=== PATIENT | female | born 1975 | race Caucasian/White ===

== ENCOUNTER 2016-03-22 19:13 | Emergency (ER) | payer OTHER ==
[~2016-03-22] VITALS: Ht 172.7 cm; Wt 100.0 kg
[~2016-03-22 19:13] MED LIST: ADVIL200 M1 OR; ADVIL200 MG OR; CELEXA10 MG PO; CIPRO500 MG OR; CIPROFLOXACN500 MG PO; KLONOPIN0.5 MG OR; LOPRESSOR; LORTAB 5 OR; PAXIL CR12.5 MG OR; PENICILLN VK500 M1 OR; TIMOLOL MAL PO
[2016-03-22 19:20] VITALS: BP 134/85
== END 2016-03-23 00:25 | disposition home or self-care (01) | DRG 563 ==
LOC: ED 19:13
DX: S93.401A Sprain of unspecified ligament of right ankle, initial encounter (principal); X50.1XXA Overexertion from prolonged static or awkward postures, initial encounter; Y92.009 Unspecified place in unspecified non-institutional (private) residence as the place of occurrence of the external cause

== ENCOUNTER 2017-11-17 05:19 | Emergency (ER) | payer OTHER ==
[~2017-11-17] VITALS: Ht 172.7 cm; Wt 102.6 kg
[2017-11-17] MEDS ORDERED: CLONAZEPAM1 MG PO (05:29)
[2017-11-17] MEDS ORDERED: TIMOLOL MAL PO ×2 (05:31→05:32)
[2017-11-17 06:16] LABS: ANION GAP 15 (6-22 (CALC)); BUN 6 mg/dL (7-17); BUN/CREATININE RATIO 9 (12-20 (CALC)); CARBON DIOXIDE 24 mmol/l (22-30); CHLORIDE 108 mmol/l (95-108); CPK 52 u/l (30-165); CREATININE 0.6 mg/dL (0.5-1.0); GFR > 60 ML/MIN (>=60 (CALC)); GFR FOR AFR.AMER. > 60 ML/MIN (>=60 (CALC)); SODIUM 143 mmol/l (137-146)
[2017-11-17 06:24] LABS: MYOGLOBIN 31 ng/mL (0 - 62)
[2017-11-17] MEDS ORDERED: VOLTAREN - GENE75 MG PO (06:45)
[2017-11-17 07:03] VITALS: BP 141/92
== END 2017-11-17 07:09 | disposition home or self-care (01) ==
LOC: ED 05:19
PROVIDERS: Family Medicine
DX: M54.16 Radiculopathy, lumbar region (principal); I34.1 Nonrheumatic mitral (valve) prolapse; F41.9 Anxiety disorder, unspecified; F17.200 Nicotine dependence, unspecified, uncomplicated; M79.651 Pain in right thigh

== ENCOUNTER 2018-06-16 17:06 | Emergency (ER) | payer BC ==
[~2018-06-16] VITALS: Ht 172.7 cm; Wt 100.0 kg
[~2018-06-16 17:06] MED LIST changes: +CLONAZEPAM1 MG PO; +VOLTAREN - GENE75 MG PO
[2018-06-16 17:45] LABS: HEMATOCRIT 47.4 % (37.0-47.0); HEMOGLOBIN 15.8 g/dl (12.0-16.0); IMMATURE GRANULOCYTES 0.4 % (0.0-5.0); MEAN CELL VOLUME 88.4 fL CALC (80.0-100.0); MEAN CORPUSCULAR HGB 29.5 pG CALC (26.0-32.0); MEAN CORPUSCULAR HGB CONC 33.3 g/L CALC (32.0-36.0); NEUT# 6.84 thou/uL (2.00-7.15); RED BLOOD COUNT 5.36 mill/uL (4.20-5.60); RED CELL DISTRI WIDTH 12.8 % (11.5-15.5)
[2018-06-16 18:18] LABS: ALBUMIN 4.9 g/dL (3.2-5.0); ALKALINE PHOSPHATASE 120 u/l (38-126); ANION GAP 15 (6-22 (CALC)); BILIRUBIN, TOTAL 0.5 mg/dL (0.0-1.4); BUN 10 mg/dL (7-17); BUN/CREATININE RATIO 12 (12-20 (CALC)); CARBON DIOXIDE 22 mmol/l (22-30); CHLORIDE 106 mmol/l (95-108); CREATININE 0.9 mg/dL (0.5-1.0); GFR > 60 ML/MIN (>=60 (CALC)); GFR FOR AFR.AMER. > 60 ML/MIN (>=60 (CALC)); POTASSIUM 3.9 mmol/l (3.5-5.1); SGOT/AST 18 u/l (14-36); SODIUM 139 mmol/l (137-146); TOTAL PROTEIN 7.7 g/dL (6.3-8.2)
[2018-06-16 20:53] LABS: URINE BILIRUBIN - DIPSTICK NEGATIVE (NEGATIVE); URINE BLOOD DIPSTICK SMALL (NEGATIVE); URINE COLOR YELLOW; URINE GLUCOSE - DIPSTICK NEGATIVE (NEGATIVE); URINE KETONE NEGATIVE (NEGATIVE); URINE NITRITE - DIPSTICK NEGATIVE (Negative); URINE PH 5.5 (4.5-8.0); URINE PROTEIN - DIPSTICK NEGATIVE (NEG-TRACE); URINE SPECIFIC GRAVITY <=1.005; URINE UROBILINOGEN - DIPSTICK 0.2 E.U./dL (0.2)
[2018-06-16 20:54] LABS: URINE LEUK ESTERASE MODERATE (NEGATIVE)
[2018-06-16 21:00] VITALS: BP 124/80
[2018-06-16 21:01] LABS: BARBITURATES NEGATIVE (NEGATIVE); COCAINE NEGATIVE (NEGATIVE); METHADONE NEGATIVE (NEGATIVE); OXCYCODONE NEGATIVE (NEGATIVE); TETRAHYDROCANNABIONOL NEGATIVE (NEGATIVE); TRICYLIC ANTIDEPRESSANTS NEGATIVE (NEGATIVE)
[2018-06-16 21:05] LABS: URINE BACTERIA FEW hpf; URINE SQUAMOUS EPITHELIAL CELL FEW EPI/hpf (0-FEW); URINE WBC 20-50 WBC/hpf (0-5)
[2018-06-16] MEDS ORDERED: KEFLEX500 MG PO (21:12)
== END 2018-06-16 21:20 | disposition home or self-care (01) | DRG 880 ==
LOC: ED 17:06
DX: F41.9 Anxiety disorder, unspecified (principal); R00.2 Palpitations; F17.200 Nicotine dependence, unspecified, uncomplicated
CPT/HCPCS: J2060

== ENCOUNTER 2018-07-30 17:03 | Emergency (ER) | payer BC ==
[~2018-07-30] VITALS: Ht 172.7 cm; Wt 100.0 kg
[~2018-07-30 17:03] MED LIST changes: +KEFLEX500 MG PO
[2018-07-30] MEDS ORDERED: METOPROL TAR25 MG PO (17:14)
[2018-07-30] MEDS ORDERED: PAROXETIN ER12.5 MG PO (17:15)
[2018-07-30] MEDS ORDERED: ALPRAZOLAM1 MG PO (17:15)
[2018-07-30] MEDS ORDERED: LEVOTHYROXIN50 MCG PO (17:21)
[2018-07-30] MEDS ORDERED: LASIX 40 MG TAB40 MG PO (17:22)
[2018-07-30 18:03] LABS: IMMATURE GRANULOCYTES 0.4 % (0.0-5.0); MEAN CELL VOLUME 86.8 fL CALC (80.0-100.0); MEAN CORPUSCULAR HGB CONC 33.4 g/L CALC (32.0-36.0); NEUT# 6.06 thou/uL (2.00-7.15); RED BLOOD COUNT 4.69 mill/uL (4.20-5.60)
[2018-07-30 18:06] LABS: HEMATOCRIT 40.7 % (37.0-47.0); HEMOGLOBIN 13.6 g/dl (12.0-16.0)
[2018-07-30 18:18] LABS: ALBUMIN 4.2 g/dL (3.2-5.0); ALKALINE PHOSPHATASE 106 u/l (38-126); ANION GAP 9 (6-22 (CALC)); BILIRUBIN, TOTAL 0.3 mg/dL (0.0-1.4); BUN 8 mg/dL (7-17); BUN/CREATININE RATIO 8 (12-20 (CALC)); CHLORIDE 107 mmol/l (95-108); CREATININE 1.1 mg/dL (0.5-1.0); GFR 55 ML/MIN (>=60 (CALC)); GFR FOR AFR.AMER. > 60 ML/MIN (>=60 (CALC)); POTASSIUM 3.9 mmol/l (3.5-5.1); SGOT/AST 15 u/l (14-36); SODIUM 139 mmol/l (137-146); TOTAL PROTEIN 7.1 g/dL (6.3-8.2)
[2018-07-30 18:22] LABS: CARBON DIOXIDE 27 mmol/l (22-30); URINE BILIRUBIN - DIPSTICK NEGATIVE (NEGATIVE); URINE BLOOD DIPSTICK TRACE-INTACT (NEGATIVE); URINE COLOR YELLOW; URINE GLUCOSE - DIPSTICK NEGATIVE (NEGATIVE); URINE KETONE NEGATIVE (NEGATIVE); URINE LEUK ESTERASE TRACE (NEGATIVE); URINE NITRITE - DIPSTICK NEGATIVE (Negative); URINE PROTEIN - DIPSTICK NEGATIVE (NEG-TRACE); URINE SPECIFIC GRAVITY >=1.030; URINE UROBILINOGEN - DIPSTICK 0.2 E.U./dL (0.2)
[2018-07-30] MEDS ORDERED: FLUOXETINE HCL20 MG PO (18:22)
[2018-07-30] MEDS ORDERED: INDERAL10 M1 PO (18:22)
[2018-07-30 20:45] VITALS: BP 129/74
== END 2018-07-30 20:45 | disposition home or self-care (01) | DRG 552 ==
LOC: ED 17:03
PROVIDERS: Family Medicine
DX: S16.1XXA Strain of muscle, fascia and tendon at neck level, initial encounter (principal); M62.838 Other muscle spasm; I10 Essential (primary) hypertension; I34.1 Nonrheumatic mitral (valve) prolapse; F17.210 Nicotine dependence, cigarettes, uncomplicated; X58.XXXA Exposure to other specified factors, initial encounter; Y92.9 Unspecified place or not applicable

== ENCOUNTER 2018-09-21 18:52 | Emergency (ER) | payer BC ==
[~2018-09-21] VITALS: Ht 172.7 cm; Wt 100.0 kg
[~2018-09-21 18:52] MED LIST changes: +ALPRAZOLAM1 MG PO; +FLUOXETINE HCL20 MG PO; +INDERAL10 M1 PO; +LASIX 40 MG TAB40 MG PO; +LEVOTHYROXIN50 MCG PO; +METOPROL TAR25 MG PO; +PAROXETIN ER12.5 MG PO
[2018-09-21] MEDS ORDERED: METOPROL TAR25 MG PO (19:03)
[2018-09-21] MEDS ORDERED: CLONAZEPAM1 MG PO (19:06)
[2018-09-21] MEDS ORDERED: CLINDAMYCIN300 M1 PO (19:15)
[2018-09-21] MEDS ORDERED: MOTRIN800 MG PO (19:15)
[2018-09-21 19:20] VITALS: BP 144/99
== END 2018-09-21 19:20 | disposition home or self-care (01) | DRG 159 ==
LOC: ED 18:52
DX: K02.9 Dental caries, unspecified (principal); K04.7 Periapical abscess without sinus; B37.9 Candidiasis, unspecified; I10 Essential (primary) hypertension; F17.210 Nicotine dependence, cigarettes, uncomplicated

== ENCOUNTER 2018-10-28 05:48 | Emergency (ER) | payer BC ==
[~2018-10-28] VITALS: Ht 172.7 cm; Wt 100.0 kg
[~2018-10-28 05:48] MED LIST changes: +CLINDAMYCIN300 M1 PO; +MOTRIN800 MG PO
[2018-10-28] MEDS ORDERED: INDERAL 20MG TA20 MG PO (06:26)
[2018-10-28 07:01] LABS: HEMATOCRIT 42.3 % (37.0-47.0); HEMOGLOBIN 14.2 g/dl (12.0-16.0); IMMATURE GRANULOCYTES 0.5 % (0.0-5.0); MEAN CELL VOLUME 84.8 fL CALC (80.0-100.0); MEAN CORPUSCULAR HGB 28.5 pG CALC (26.0-32.0); MEAN CORPUSCULAR HGB CONC 33.6 g/L CALC (32.0-36.0); NEUT# 8.5 thou/uL (2.00-7.15); RED BLOOD COUNT 4.99 mill/uL (4.20-5.60); RED CELL DISTRI WIDTH 12.8 % (11.5-15.5)
[2018-10-28 07:04] LABS: URINE BILIRUBIN - DIPSTICK NEGATIVE (NEGATIVE); URINE BLOOD DIPSTICK MODERATE (NEGATIVE); URINE COLOR YELLOW; URINE GLUCOSE - DIPSTICK NEGATIVE (NEGATIVE); URINE KETONE NEGATIVE (NEGATIVE); URINE NITRITE - DIPSTICK NEGATIVE (Negative); URINE PH 5.5 (4.5-8.0); URINE PROTEIN - DIPSTICK NEGATIVE (NEG-TRACE); URINE SPECIFIC GRAVITY 1.015; URINE UROBILINOGEN - DIPSTICK 0.2 E.U./dL (0.2)
[2018-10-28 07:13] LABS: BARBITURATES NEGATIVE (NEGATIVE); COCAINE NEGATIVE (NEGATIVE); METHADONE NEGATIVE (NEGATIVE); TETRAHYDROCANNABIONOL NEGATIVE (NEGATIVE); TRICYLIC ANTIDEPRESSANTS NEGATIVE (NEGATIVE)
[2018-10-28 07:14] LABS: OXCYCODONE NEGATIVE (NEGATIVE)
[2018-10-28 07:16] LABS: URINE LEUK ESTERASE NEGATIVE (NEGATIVE)
[2018-10-28 07:17] LABS: URINE BACTERIA RARE hpf; URINE EPITHELIAL CELLS FEW EPI/hpf (0-FEW)
[2018-10-28 07:32] LABS: ALBUMIN 4.3 g/dL (3.2-5.0); ALKALINE PHOSPHATASE 99 u/l (38-126); ANION GAP 16 (6-22 (CALC)); BUN 9 mg/dL (7-17); BUN/CREATININE RATIO 14 (12-20 (CALC)); CARBON DIOXIDE 22 mmol/l (22-30); CHLORIDE 104 mmol/l (95-108); CREATININE 0.7 mg/dL (0.5-1.0); GFR > 60 ML/MIN (>=60 (CALC)); GFR FOR AFR.AMER. > 60 ML/MIN (>=60 (CALC)); POTASSIUM 4.6 mmol/l (3.5-5.1); SGOT/AST 15 u/l (14-36); SODIUM 137 mmol/l (137-146); TOTAL PROTEIN 7.4 g/dL (6.3-8.2)
[2018-10-28 07:34] LABS: BILIRUBIN, TOTAL 0.8 mg/dL (0.0-1.4)
[2018-10-28 07:44] LABS: MYOGLOBIN 34 ng/mL (0 - 62)
[2018-10-28 10:43] VITALS: BP 114/69
== END 2018-10-28 10:43 | disposition home or self-care (01) | DRG 310 ==
LOC: ED 05:48
PROVIDERS: Emergency Medicine
DX: R00.2 Palpitations (principal); R07.9 Chest pain, unspecified; I10 Essential (primary) hypertension; I34.1 Nonrheumatic mitral (valve) prolapse; F41.9 Anxiety disorder, unspecified; F17.200 Nicotine dependence, unspecified, uncomplicated

== ENCOUNTER 2018-11-01 04:01 | Emergency (ER) | payer BC ==
[~2018-11-01] VITALS: Ht 172.7 cm; Wt 100.0 kg
[~2018-11-01 04:01] MED LIST changes: +INDERAL 20MG TA20 MG PO
[2018-11-01 04:52] LABS: HEMATOCRIT 41.2 % (37.0-47.0); HEMOGLOBIN 14.1 g/dl (12.0-16.0); IMMATURE GRANULOCYTES 0.5 % (0.0-5.0); MEAN CELL VOLUME 84.3 fL CALC (80.0-100.0); MEAN CORPUSCULAR HGB 28.8 pG CALC (26.0-32.0); MEAN CORPUSCULAR HGB CONC 34.2 g/L CALC (32.0-36.0); NEUT# 7.22 thou/uL (2.00-7.15); RED BLOOD COUNT 4.89 mill/uL (4.20-5.60); RED CELL DISTRI WIDTH 12.7 % (11.5-15.5)
[2018-11-01 05:10] LABS: ALBUMIN 4.6 g/dL (3.2-5.0); ALKALINE PHOSPHATASE 97 u/l (38-126); BILIRUBIN, TOTAL 0.6 mg/dL (0.0-1.4); BUN 8 mg/dL (7-17); BUN/CREATININE RATIO 11 (12-20 (CALC)); CARBON DIOXIDE 25 mmol/l (22-30); CHLORIDE 102 mmol/l (95-108); CREATININE 0.7 mg/dL (0.5-1.0); GFR > 60 ML/MIN (>=60 (CALC)); GFR FOR AFR.AMER. > 60 ML/MIN (>=60 (CALC)); LIPASE 112 u/l (23-300); SGOT/AST 15 u/l (14-36); SODIUM 140 mmol/l (137-146); TOTAL PROTEIN 7.7 g/dL (6.3-8.2)
[2018-11-01 05:11] LABS: ANION GAP 17 (6-22 (CALC)); POTASSIUM 3.5 mmol/l (3.5-5.1)
[2018-11-01 05:37] LABS: URINE BILIRUBIN - DIPSTICK NEGATIVE (NEGATIVE); URINE BLOOD DIPSTICK SMALL (NEGATIVE); URINE COLOR YELLOW; URINE GLUCOSE - DIPSTICK NEGATIVE (NEGATIVE); URINE KETONE 15 mg/dL (NEGATIVE); URINE LEUK ESTERASE NEGATIVE (NEGATIVE); URINE NITRITE - DIPSTICK NEGATIVE (Negative); URINE PROTEIN - DIPSTICK NEGATIVE (NEG-TRACE); URINE SPECIFIC GRAVITY 1.015; URINE UROBILINOGEN - DIPSTICK 0.2 E.U./dL (0.2)
[2018-11-01 05:41] LABS: BARBITURATES NEGATIVE (NEGATIVE); COCAINE NEGATIVE (NEGATIVE); METHADONE NEGATIVE (NEGATIVE); OXCYCODONE NEGATIVE (NEGATIVE); TETRAHYDROCANNABIONOL NEGATIVE (NEGATIVE); TRICYLIC ANTIDEPRESSANTS NEGATIVE (NEGATIVE); URINE EPITHELIAL CELLS FEW EPI/hpf (0-FEW)
[2018-11-01 06:17] VITALS: BP 112/65
[2018-11-01] MEDS ORDERED: ULTRAM50 M1 PO (18:56)
[2018-11-01] MEDS ORDERED: PREVACID30 M3 PO (18:56)
[2018-11-01] MEDS ORDERED: ONDANSETRON4 MG PO (19:11)
== END 2018-11-01 06:17 | disposition home or self-care (01) | DRG 313 ==
LOC: ED 04:01
DX: R07.89 Other chest pain (principal); K85.90 Acute pancreatitis without necrosis or infection, unspecified; F41.9 Anxiety disorder, unspecified; I10 Essential (primary) hypertension; I34.1 Nonrheumatic mitral (valve) prolapse; F17.210 Nicotine dependence, cigarettes, uncomplicated; K29.70 Gastritis, unspecified, without bleeding
CPT/HCPCS: Q9967

== ENCOUNTER 2018-11-01 16:17 | Emergency (ER) | payer BC ==
[~2018-11-01] VITALS: Ht 172.7 cm; Wt 100.0 kg
[2018-11-01 17:05] LABS: HEMATOCRIT 42.1 % (37.0-47.0); HEMOGLOBIN 14.3 g/dl (12.0-16.0); IMMATURE GRANULOCYTES 0.3 % (0.0-5.0); MEAN CELL VOLUME 83.7 fL CALC (80.0-100.0); MEAN CORPUSCULAR HGB 28.4 pG CALC (26.0-32.0); NEUT# 10.51 thou/uL (2.00-7.15); RED BLOOD COUNT 5.03 mill/uL (4.20-5.60)
[2018-11-01 17:08] LABS: AMYLASE 78 u/l (30-110); LIPASE 586 u/l (23-300)
[2018-11-01 17:48] LABS: ALBUMIN 4.9 g/dL (3.2-5.0); ALKALINE PHOSPHATASE 101 u/l (38-126); ANION GAP 17 (6-22 (CALC)); BILIRUBIN, TOTAL 0.7 mg/dL (0.0-1.4); BUN 8 mg/dL (7-17); BUN/CREATININE RATIO 11 (12-20 (CALC)); CARBON DIOXIDE 22 mmol/l (22-30); CHLORIDE 103 mmol/l (95-108); CREATININE 0.7 mg/dL (0.5-1.0); GFR > 60 ML/MIN (>=60 (CALC)); GFR FOR AFR.AMER. > 60 ML/MIN (>=60 (CALC)); POTASSIUM 3.7 mmol/l (3.5-5.1); SGOT/AST 19 u/l (14-36); SODIUM 138 mmol/l (137-146); TOTAL PROTEIN 8.1 g/dL (6.3-8.2)
[2018-11-01] MEDS ORDERED: PREVACID30 M3 PO (18:56)
[2018-11-01] MEDS ORDERED: ULTRAM50 M1 PO (18:56)
[2018-11-01 19:06] VITALS: BP 140/73
[2018-11-01] MEDS ORDERED: ONDANSETRON4 MG PO (19:11)
== END 2018-11-01 19:22 | disposition home or self-care (01) | DRG 313 ==
LOC: ED 16:17
PROVIDERS: Emergency Medicine
DX: R07.89 Other chest pain (principal); K85.90 Acute pancreatitis without necrosis or infection, unspecified; K29.70 Gastritis, unspecified, without bleeding; I10 Essential (primary) hypertension; I34.1 Nonrheumatic mitral (valve) prolapse; F41.9 Anxiety disorder, unspecified; F17.210 Nicotine dependence, cigarettes, uncomplicated
CPT/HCPCS: Q9967

== ENCOUNTER 2018-11-04 11:04 | Emergency (ER) | payer BC ==
[~2018-11-04] VITALS: Ht 172.7 cm; Wt 100.0 kg
[~2018-11-04 11:04] MED LIST changes: +ONDANSETRON4 MG PO; +PREVACID30 M3 PO; +ULTRAM50 M1 PO
[2018-11-04 12:45] LABS: HEMATOCRIT 42.9 % (37.0-47.0); HEMOGLOBIN 14.5 g/dl (12.0-16.0); IMMATURE GRANULOCYTES 0.4 % (0.0-5.0); MEAN CELL VOLUME 84.8 fL CALC (80.0-100.0); MEAN CORPUSCULAR HGB 28.7 pG CALC (26.0-32.0); MEAN CORPUSCULAR HGB CONC 33.8 g/L CALC (32.0-36.0); NEUT# 9.82 thou/uL (2.00-7.15); RED BLOOD COUNT 5.06 mill/uL (4.20-5.60); RED CELL DISTRI WIDTH 13.1 % (11.5-15.5)
[2018-11-04 12:59] LABS: ALBUMIN 5.2 g/dL (3.2-5.0); ALKALINE PHOSPHATASE 100 u/l (38-126); ANION GAP 17 (6-22 (CALC)); BUN 7 mg/dL (7-17); BUN/CREATININE RATIO 9 (12-20 (CALC)); CARBON DIOXIDE 26 mmol/l (22-30); CHLORIDE 101 mmol/l (95-108); CREATININE 0.8 mg/dL (0.5-1.0); GFR > 60 ML/MIN (>=60 (CALC)); GFR FOR AFR.AMER. > 60 ML/MIN (>=60 (CALC)); LIPASE 309 u/l (23-300); POTASSIUM 4.2 mmol/l (3.5-5.1); SGOT/AST 15 u/l (14-36); SODIUM 140 mmol/l (137-146); TOTAL PROTEIN 8.3 g/dL (6.3-8.2)
[2018-11-04 13:13] LABS: BILIRUBIN, TOTAL 0.4 mg/dL (0.0-1.4)
[2018-11-04 13:50] LABS: URINE BILIRUBIN - DIPSTICK NEGATIVE (NEGATIVE); URINE BLOOD DIPSTICK SMALL (NEGATIVE); URINE COLOR YELLOW; URINE GLUCOSE - DIPSTICK NEGATIVE (NEGATIVE); URINE KETONE NEGATIVE (NEGATIVE); URINE LEUK ESTERASE NEGATIVE (NEGATIVE); URINE NITRITE - DIPSTICK NEGATIVE (Negative); URINE PROTEIN - DIPSTICK NEGATIVE (NEG-TRACE); URINE SPECIFIC GRAVITY <=1.005; URINE UROBILINOGEN - DIPSTICK 0.2 E.U./dL (0.2)
[2018-11-04 13:52] LABS: BARBITURATES NEGATIVE (NEGATIVE); COCAINE NEGATIVE (NEGATIVE); METHADONE NEGATIVE (NEGATIVE); OXCYCODONE NEGATIVE (NEGATIVE); TETRAHYDROCANNABIONOL NEGATIVE (NEGATIVE); TRICYLIC ANTIDEPRESSANTS NEGATIVE (NEGATIVE)
[2018-11-04 14:02] LABS: URINE SQUAMOUS EPITHELIAL CELL FEW EPI/hpf (0-FEW)
[2018-11-04] MEDS ORDERED: PROTONIX40 M2 PO (15:03)
[2018-11-04 15:15] VITALS: BP 100/58
[2018-11-04] MEDS ORDERED: AMBIEN5 MG PO (15:24)
[2018-11-04] MEDS ORDERED: TIMOLOL XX (15:26)
[2018-11-04] MEDS ORDERED: PRILOSEC20 MG/CAP PO (15:27)
== END 2018-11-04 15:15 | disposition home or self-care (01) | DRG 313 ==
LOC: ED 11:04
DX: R07.89 Other chest pain (principal); F41.9 Anxiety disorder, unspecified; K29.70 Gastritis, unspecified, without bleeding; I10 Essential (primary) hypertension; F17.200 Nicotine dependence, unspecified, uncomplicated

== ENCOUNTER 2018-11-06 09:36 | Emergency (ER) | payer BC ==
[~2018-11-06] VITALS: Ht 172.7 cm; Wt 97.0 kg
[~2018-11-06 09:36] MED LIST changes: +AMBIEN5 MG PO; +PRILOSEC20 MG/CAP PO; +PROTONIX40 M2 PO; +TIMOLOL XX
[2018-11-06 10:18] LABS: HEMATOCRIT 44.5 % (37.0-47.0); HEMOGLOBIN 14.7 g/dl (12.0-16.0); IMMATURE GRANULOCYTES 0.4 % (0.0-5.0); MEAN CELL VOLUME 85.7 fL CALC (80.0-100.0); MEAN CORPUSCULAR HGB 28.3 pG CALC (26.0-32.0); NEUT# 9.3 thou/uL (2.00-7.15); RED BLOOD COUNT 5.19 mill/uL (4.20-5.60); RED CELL DISTRI WIDTH 13.2 % (11.5-15.5)
[2018-11-06 10:43] LABS: ANION GAP 15 (6-22 (CALC)); BUN 5 mg/dL (7-17); BUN/CREATININE RATIO 7 (12-20 (CALC)); CARBON DIOXIDE 26 mmol/l (22-30); CHLORIDE 101 mmol/l (95-108); CREATININE 0.8 mg/dL (0.5-1.0); GFR > 60 ML/MIN (>=60 (CALC)); GFR FOR AFR.AMER. > 60 ML/MIN (>=60 (CALC)); POTASSIUM 3.8 mmol/l (3.5-5.1); SODIUM 138 mmol/l (137-146)
[2018-11-06 12:05] VITALS: BP 105/71
== END 2018-11-06 12:05 | disposition home or self-care (01) | DRG 313 ==
LOC: ED 09:36
PROVIDERS: Family Medicine
DX: R07.9 Chest pain, unspecified (principal); I10 Essential (primary) hypertension; F17.210 Nicotine dependence, cigarettes, uncomplicated

== ENCOUNTER 2018-12-12 06:03 | Emergency (ER) | payer BC ==
[~2018-12-12] VITALS: Ht 172.7 cm; Wt 90.0 kg
[~2018-12-12 06:03] MED LIST changes: -TIMOLOL XX
[2018-12-12 06:40] LABS: HEMATOCRIT 42.8 % (37.0-47.0); IMMATURE GRANULOCYTES 0.2 % (0.0-5.0); MEAN CELL VOLUME 85.8 fL CALC (80.0-100.0); MEAN CORPUSCULAR HGB 28.1 pG CALC (26.0-32.0); MEAN CORPUSCULAR HGB CONC 32.7 g/L CALC (32.0-36.0); NEUT# 6.06 thou/uL (2.00-7.15); RED BLOOD COUNT 4.99 mill/uL (4.20-5.60); RED CELL DISTRI WIDTH 13.1 % (11.5-15.5)
[2018-12-12 06:54] LABS: ALBUMIN 4.4 g/dL (3.2-5.0); ALKALINE PHOSPHATASE 100 u/l (38-126); ANION GAP 12 (6-22 (CALC)); BILIRUBIN, TOTAL 0.5 mg/dL (0.0-1.4); BUN 8 mg/dL (7-17); BUN/CREATININE RATIO 10 (12-20 (CALC)); CARBON DIOXIDE 27 mmol/l (22-30); CHLORIDE 106 mmol/l (95-108); CREATININE 0.8 mg/dL (0.5-1.0); GFR > 60 ML/MIN (>=60 (CALC)); GFR FOR AFR.AMER. > 60 ML/MIN (>=60 (CALC)); POTASSIUM 4.1 mmol/l (3.5-5.1); SGOT/AST 14 u/l (14-36); SODIUM 140 mmol/l (137-146); TOTAL PROTEIN 7.4 g/dL (6.3-8.2)
[2018-12-12] MEDS ORDERED: KLONOPIN0.5 MG PO (07:38)
[2018-12-12 07:46] VITALS: BP 145/72
== END 2018-12-12 07:57 | disposition home or self-care (01) | DRG 310 ==
LOC: ED 06:03
PROVIDERS: Emergency Medicine
DX: R00.2 Palpitations (principal); R00.0 Tachycardia, unspecified; R00.1 Bradycardia, unspecified

== ENCOUNTER 2019-07-18 16:24 | Emergency (ER) | payer BC ==
[~2019-07-18 16:24] MED LIST changes: +KLONOPIN0.5 MG PO; +PAROXETINE10 MG PO; +PROAIR HFA IN; +SPIRIVA HANDIH18 MCG; +SYMBICORT1 AE1 IN
[2019-07-18] MEDS ORDERED: CLONAZEPAM1 M1 PO (16:49)
[2019-07-18] MEDS ORDERED: SPIRIVA HANDIHALER IN (16:50)
[2019-07-18] MEDS ORDERED: AMOX/K CLAV875 M1 PO (16:59)
[2019-07-18] MEDS ORDERED: HYDROCO/APAP1 TA9 PO (16:59)
[2019-07-18 17:10] VITALS: BP 128/73
== END 2019-07-18 17:10 | disposition home or self-care (01) | DRG 153 ==
LOC: ED 16:24
DX: H66.91 Otitis media, unspecified, right ear (principal); H60.91 Unspecified otitis externa, right ear; I10 Essential (primary) hypertension; F17.200 Nicotine dependence, unspecified, uncomplicated

== ENCOUNTER 2020-04-07 04:23 | Emergency (ER) | payer BC ==
[~2020-04-07] VITALS: Ht 172.7 cm; Wt 99.8 kg
[~2020-04-07 04:23] MED LIST changes: +AMOX/K CLAV875 M1 PO; +CLONAZEPAM1 M1 PO; +HYDROCO/APAP1 TA9 PO; +SPIRIVA HANDIHALER IN
[2020-04-07 06:05] LABS: URINE BILIRUBIN - DIPSTICK NEGATIVE (NEGATIVE); URINE BLOOD DIPSTICK MODERATE (NEGATIVE); URINE COLOR YELLOW; URINE GLUCOSE - DIPSTICK NEGATIVE (NEGATIVE); URINE KETONE NEGATIVE (NEGATIVE); URINE NITRITE - DIPSTICK NEGATIVE (Negative); URINE PH 5.5 (4.5-8.0); URINE PROTEIN - DIPSTICK NEGATIVE (NEG-TRACE); URINE SPECIFIC GRAVITY >=1.030
[2020-04-07 06:08] LABS: URINE LEUK ESTERASE SMALL (NEGATIVE)
[2020-04-07 06:10] LABS: HEMATOCRIT 42.2 % (37.0-47.0); HEMOGLOBIN 13.5 g/dl (12.0-16.0); IMMATURE GRANULOCYTES 0.4 % (0.0-5.0); MEAN CELL VOLUME 87.9 fL CALC (80.0-100.0); MEAN CORPUSCULAR HGB 28.1 pG CALC (26.0-32.0); NEUT# 10.22 thou/uL (2.00-7.15); RED BLOOD COUNT 4.8 mill/uL (4.20-5.60); RED CELL DISTRI WIDTH 13.7 % (11.5-15.5)
[2020-04-07 06:28] LABS: URINE BACTERIA FEW hpf; URINE MUCUS FEW hpf (NONE-FEW); URINE SQUAMOUS EPITHELIAL CELL FEW EPI/hpf (0-FEW); URINE WBC 20-50 WBC/hpf (0-5)
[2020-04-07 06:29] LABS: ALKALINE PHOSPHATASE 102 u/l (38-126); AMYLASE 46 u/l (30-110); ANION GAP 11 (6-22 (CALC)); BILIRUBIN, TOTAL 0.7 mg/dL (0.0-1.4); BUN 10 mg/dL (7-17); BUN/CREATININE RATIO 16 (12-20 (CALC)); CARBON DIOXIDE 25 mmol/l (22-30); CHLORIDE 105 mmol/l (95-108); CREATININE 0.7 mg/dL (0.5-1.0); GFR > 60 ML/MIN (>=60 (CALC)); GFR FOR AFR.AMER. > 60 ML/MIN (>=60 (CALC)); LIPASE 109 u/l (23-300); SGOT/AST 16 u/l (14-36); SODIUM 137 mmol/l (137-146); TOTAL PROTEIN 6.9 g/dL (6.3-8.2)
[2020-04-07] MEDS ORDERED: NITROFURANTN100 M2 PO (08:16)
[2020-04-07 08:20] VITALS: BP 146/69
== END 2020-04-07 08:29 | disposition home or self-care (01) | DRG 690 ==
LOC: ED 04:23
PROVIDERS: Family Medicine
DX: N39.0 Urinary tract infection, site not specified (principal); I10 Essential (primary) hypertension; I34.1 Nonrheumatic mitral (valve) prolapse; F41.9 Anxiety disorder, unspecified; F17.210 Nicotine dependence, cigarettes, uncomplicated
CPT/HCPCS: Q9967

== ENCOUNTER 2021-06-23 00:34 | Emergency (ER) | payer BC ==
[~2021-06-23] VITALS: Ht 172.7 cm; Wt 102.0 kg
[~2021-06-23 00:34] MED LIST changes: +NITROFURANTN100 M2 PO
[2021-06-23 00:50] VITALS: BP 152/91
[2021-06-23 02:30] LABS: HEMATOCRIT 45.8 % (37.0-47.0); HEMOGLOBIN 15.1 g/dl (12.0-16.0); IMMATURE GRANULOCYTES 0.4 % (0.0-5.0); MEAN CELL VOLUME 86.9 fL CALC (80.0-100.0); MEAN CORPUSCULAR HGB 28.7 pG CALC (26.0-32.0); NEUT# 8.19 thou/uL (2.00-7.15); RED BLOOD COUNT 5.27 mill/uL (4.20-5.60); RED CELL DISTRI WIDTH 13.7 % (11.5-15.5)
[2021-06-23 02:51] LABS: ALBUMIN 4.4 g/dL (3.2-5.0); ALKALINE PHOSPHATASE 107 u/l (38-126); ANION GAP 17 (6-22 (CALC)); BUN 8 mg/dL (7-17); BUN/CREATININE RATIO 13 (12-20 (CALC)); CARBON DIOXIDE 20 mmol/l (22-30); CHLORIDE 107 mmol/l (95-108); CREATININE 0.6 mg/dL (0.5-1.0); GFR > 60 ML/MIN (>=60 (CALC)); GFR FOR AFR.AMER. > 60 ML/MIN (>=60 (CALC)); POTASSIUM 4.2 mmol/l (3.5-5.1); SGOT/AST 15 u/l (14-36); SODIUM 139 mmol/l (137-146); TOTAL PROTEIN 7.5 g/dL (6.3-8.2)
[2021-06-23 02:54] LABS: BILIRUBIN, TOTAL 0.2 mg/dL (0.0-1.4)
[2021-06-23] MEDS ORDERED: AMOX/K CLAV875 M1 PO (03:43)
[2021-06-23 04:37] VITALS: BP 146/70
== END 2021-06-23 04:37 | disposition home or self-care (01) | DRG 153 ==
LOC: ED 00:34
PROVIDERS: Internal Medicine
DX: H66.92 Otitis media, unspecified, left ear (principal); K08.409 Partial loss of teeth, unspecified cause, unspecified class; I10 Essential (primary) hypertension; F41.9 Anxiety disorder, unspecified; I34.1 Nonrheumatic mitral (valve) prolapse; F17.200 Nicotine dependence, unspecified, uncomplicated
CPT/HCPCS: J2060

== ENCOUNTER 2021-12-12 23:01 | Emergency (ER) | payer BC ==
[~2021-12-12] VITALS: Ht 172.7 cm; Wt 100.0 kg
[2021-12-12 23:10] VITALS: BP 182/100
[2021-12-12 23:30] VITALS: BP 147/84
[2021-12-12 23:45] VITALS: BP 146/92
[2021-12-12] MEDS ORDERED: VIBRAMYCIN100 M2 PO (23:50)
[2021-12-12 23:55] VITALS: BP 146/92
== END 2021-12-13 00:05 | disposition home or self-care (01) | DRG 601 ==
LOC: ED 23:01
DX: N60.42 Mammary duct ectasia of left breast (principal); I10 Essential (primary) hypertension; I34.1 Nonrheumatic mitral (valve) prolapse; F17.200 Nicotine dependence, unspecified, uncomplicated

== ENCOUNTER 2022-02-13 02:21 | Emergency (ER) | payer BC ==
[~2022-02-13] VITALS: Ht 172.7 cm; Wt 100.0 kg
[~2022-02-13 02:21] MED LIST changes: +VIBRAMYCIN100 M2 PO
[2022-02-13 02:44] VITALS: BP 146/80
[2022-02-13 03:28] LABS: BASO% 0.3 % (0-3); EOS% 2.8 % (0-8); IMMATURE GRANULOCYTES 0.5 % (0.0-5.0); LYMPH% 20.3 % (15-41); MEAN CELL VOLUME 86.8 fL CALC (80.0-100.0); MEAN CORPUSCULAR HGB 28.6 pG CALC (26.0-32.0); MONO% 5.2 % (2-13); NEUT# 6.12 thou/uL (2.00-7.15); NEUT% 70.9 % (42-76); RED BLOOD COUNT 3.18 mill/uL (4.20-5.60)
[2022-02-13 03:30] LABS: HEMATOCRIT 27.6 % (37.0-47.0); HEMOGLOBIN 9.1 g/dl (12.0-16.0)
[2022-02-13 03:39] LABS: ALBUMIN 4.2 g/dL (3.2-5.0); ALKALINE PHOSPHATASE 111 u/l (38-126); ANION GAP 9 (6-22 (CALC)); BUN 9 mg/dL (7-17); BUN/CREATININE RATIO 14 (12-20 (CALC)); CARBON DIOXIDE 23 mmol/l (22-30); CHLORIDE 110 mmol/l (95-108); CREATININE 0.6 mg/dL (0.5-1.0); GFR FOR AFR.AMER. > 60 ML/MIN (>=60 (CALC)); GFR OTHER RACES > 60 ML/MIN (>=60 (CALC)); POTASSIUM 3.7 mmol/l (3.5-5.1); SGOT/AST 21 u/l (14-36); SODIUM 138 mmol/l (137-146); TOTAL PROTEIN 7.1 g/dL (6.3-8.2)
[2022-02-13 03:41] LABS: BILIRUBIN, TOTAL 0.1 mg/dL (0.0-1.4)
[2022-02-13 04:32] VITALS: BP 146/80
== END 2022-02-13 04:32 | disposition home or self-care (01) | DRG 761 ==
LOC: ED 02:21
PROVIDERS: Family Medicine
DX: N92.0 Excessive and frequent menstruation with regular cycle (principal); D64.9 Anemia, unspecified

== ENCOUNTER 2022-03-02 14:09 | Emergency (ER) | payer BC ==
[~2022-03-02] VITALS: Ht 172.7 cm; Wt 99.8 kg
[2022-03-02 14:47] LABS: BASO% 0.4 % (0-3); EOS% 1.9 % (0-8); HEMATOCRIT 27.5 % (37.0-47.0); HEMOGLOBIN 8.4 g/dl (12.0-16.0); IMMATURE GRANULOCYTES 0.2 % (0.0-5.0); LYMPH% 20.5 % (15-41); MEAN CORPUSCULAR HGB 23.9 pG CALC (26.0-32.0); MEAN CORPUSCULAR HGB CONC 30.5 g/dL CAL (32.0-36.0); MONO% 4.8 % (2-13); NEUT% 72.2 % (42-76); RED BLOOD COUNT 3.52 mill/uL (4.20-5.60); RED CELL DISTRI WIDTH 15.7 % (11.5-15.5)
[2022-03-02 14:48] LABS: MEAN CELL VOLUME 78.1 fL CALC (80.0-100.0)
[2022-03-02 15:05] LABS: ALBUMIN 4.7 g/dL (3.2-5.0); ALKALINE PHOSPHATASE 104 u/l (38-126); ANION GAP 11 (6-22 (CALC)); BILIRUBIN, TOTAL 0.1 mg/dL (0.0-1.4); BUN 8 mg/dL (7-17); BUN/CREATININE RATIO 11 (12-20 (CALC)); CARBON DIOXIDE 23 mmol/l (22-30); CHLORIDE 110 mmol/l (95-108); CREATININE 0.7 mg/dL (0.5-1.0); GFR FOR AFR.AMER. > 60 ML/MIN (>=60 (CALC)); GFR OTHER RACES > 60 ML/MIN (>=60 (CALC)); SGOT/AST 18 u/l (14-36); SODIUM 140 mmol/l (137-146); TOTAL PROTEIN 7.8 g/dL (6.3-8.2)
[2022-03-02 15:38] LABS: TSH, 3RD GENERATION 2.22 uIU/mL (0.47 - 4.68)
[2022-03-02 17:07] VITALS: BP 139/81
== END 2022-03-02 17:19 | disposition home or self-care (01) | DRG 812 ==
LOC: ED 14:09
PROVIDERS: Family Medicine
DX: D50.9 Iron deficiency anemia, unspecified (principal)

== ENCOUNTER 2022-03-14 16:37 | Emergency (ER) | payer BC ==
[~2022-03-14] VITALS: Ht 172.7 cm; Wt 99.8 kg
[2022-03-14 17:10] VITALS: BP 165/80
[2022-03-14 17:14] VITALS: BP 144/77
[2022-03-14 17:15] VITALS: BP 136/78
[2022-03-14] MEDS ORDERED: OMEPRAZOLE20 MG PO (17:16)
[2022-03-14 17:30] LABS: BASO% 0.4 % (0-3); EOS% 1.3 % (0-8); HEMATOCRIT 29.5 % (37.0-47.0); HEMOGLOBIN 8.7 g/dl (12.0-16.0); IMMATURE GRANULOCYTES 0.4 % (0.0-5.0); LYMPH% 19.7 % (15-41); MEAN CORPUSCULAR HGB 22.4 pG CALC (26.0-32.0); MEAN CORPUSCULAR HGB CONC 29.5 g/dL CAL (32.0-36.0); NEUT# 8.47 thou/uL (2.00-7.15); NEUT% 72.2 % (42-76); RED BLOOD COUNT 3.88 mill/uL (4.20-5.60); RED CELL DISTRI WIDTH 18.9 % (11.5-15.5)
[2022-03-14 17:45] LABS: ALBUMIN 4.7 g/dL (3.2-5.0); ALKALINE PHOSPHATASE 98 u/l (38-126); ANION GAP 12 (6-22 (CALC)); BUN 7 mg/dL (7-17); BUN/CREATININE RATIO 10 (12-20 (CALC)); CARBON DIOXIDE 22 mmol/l (22-30); CHLORIDE 109 mmol/l (95-108); CREATININE 0.7 mg/dL (0.5-1.0); GFR FOR AFR.AMER. > 60 ML/MIN (>=60 (CALC)); GFR OTHER RACES > 60 ML/MIN (>=60 (CALC)); POTASSIUM 3.5 mmol/l (3.5-5.1); SGOT/AST 20 u/l (14-36); SODIUM 140 mmol/l (137-146); TOTAL PROTEIN 7.9 g/dL (6.3-8.2)
[2022-03-14 17:50] VITALS: BP 139/79
[2022-03-14 19:08] VITALS: BP 139/79
== END 2022-03-14 19:13 | disposition home or self-care (01) | DRG 812 ==
LOC: ED 16:37
PROVIDERS: Family Medicine
DX: D62 Acute posthemorrhagic anemia (principal); N93.9 Abnormal uterine and vaginal bleeding, unspecified; D25.9 Leiomyoma of uterus, unspecified